=== PATIENT | female | born 1960 | race Caucasian/White ===

== ENCOUNTER 2016-09-04 08:55 | Inpatient (IN) | payer OTHER ==
--- NOTE | 2016-07-12 13:33 | NUR ---
JOINT CAMP: Patient attended joint camp at [facility], patient is coming in for hip replacement on 07/25/16. Patient states she has POA which is Tio Rodriguez [phone]. Patient is not the primary caregiver for anyone else and comes from home, there are stairs to enter the home. Amount is unknown as it is not on worksheet. Patient has sister & daughter who will be helping upon arrival home, Tio Rodriguez (Daughter) Chandrika Ayoub (Sister). Chandrika will be the one to transport day of discharge. Patient has never been connected with Home health or [facility] placement,patient has also never had outpatient physical therapy. Patient has bath bench,elevated toilet seat,beside commode and walker at home already.
--- NOTE | 2016-07-21 13:16 | PCM.ANEPRE ---
Anesthesia Pre-Op Review Reason for Review: +CODIE, SLEEP STUDY NOT UNTIL 09/04 Anesthesia Recommendations: Delay until Additional Data Obtain Additional Comments 55 y/o female scheduled for L Total Hip. Comorbidities include BMI 34.8, Stop Bang 07/27, 30 pack yr h/o smoking, migraines. Patient was referred to Jasmyne Barrera on 06/21/16 for insomnia and sleep issues. According to Jasmyne it takes the patient up to 60 minutes to fall asleep with OTC sleep aides, and even then she has difficulty staying asleep. The patient also snores and is a high risk for severe CODIE. A sleep study is scheduled on 09/04. Because of the patient's comorbidities and high risk for severe CODIE (as well as her current sleep issues ) it would be prudent to delay the surgery until after her sleep study. Please delay surgery until after sleep study. Jorge Mills MD Jul 21, 2016 13:16
[~2016-09-04] VITALS: Ht 167.6 cm; Wt 87.2 kg
[2016-09-04] VITALS (10 sets, daily range): BP systolic 114–149; BP diastolic 57–85; PULSE 47–75; RESP 10–20; O2SAT 93–98
[~2016-09-04 08:55] MED LIST: CeFAZolin 2 Gm/50 mL D5W IV Premix IV ONE; HYDR-4003 PO; IMI100 PO; KEN25CR EXT; Lactated Ringer's 1,000 ML IV ONE; NPR500T PO; Vancomycin Inj 1,000 MG in IV Premix 1 EACH IV ONE
--- NOTE | 2016-09-04 09:11 | PCM.HPANE ---
Patient Data Date of Service: Sep 04, 2016 Surgeon Admitting Provider: Attending Provider:Jorge Rodriguez DO Primary Care Physician:Miky Dos Santos MD Other Provider:Flori Conrad Anesthesia Reason for Visit Left Hip Vascular Necrosis Ht/WT & BMI Height (Feet): 5 Height (Inches): 6.00 Weight (Kilograms): 97.795 Body Mass Index 34.00 Allergies Coded Allergies: No Known Allergies (Verified Allergy, Unknown, 07/29/13) Past Anesthesia History Anesthesia History: Denies:: Abnormal Airway, Anesthesia Reactions, Difficult Intubation, Fam Anesthesia Reaction, Fam Malignant Hypertherm, Malignant Hyperthermia Diabetes History Hx Diabetes?: No MRSA MRSA: No Medications Blood Thinner: Aspirin Hypertension Medication: No Home Meds Incl Beta Harpal: No Reported Medications Diazepam 5 Mg Tablet5 Mg PO TID PRN For Anxiety Ref 0 09/04/16 Triamcinolone Acet (Triamcinolone Acetonide Cream)1 Applic/0.25 Gm Cr1 Applic EXT BID #60 GM Ref 0 08/29/16 Sumatriptan (Imitrex)100 Mg [id number] Mg PO Q2H PRN migraine MR x1/ NTE 200mg/24hrs 08/29/16 Naproxen 500 Mg Hlv470 Mg PO BID For Pain Ref 0 08/29/16 Hydrocodone-Acetaminophen 5-325 mg 1 Each Tablet1 Tablet PO Q6H PRN For Pain Ref 0 08/29/16 Discontinued Reported Medications Sumatriptan (Imitrex)100 Mg [id number] Mg PO PRN 07/21/16 Hydrocodone-Acetaminophen 5-325 mg 1 Each Tablet1 Tablet PO Q6H PRN For Pain Ref 0 07/21/16 Ubidecarenone/Vit E Acetate (Co Q-10 100 mg Softgel)1 Each Capsule1 Each PO DAILY 07/30/13 Multivitamin (Multi-Vitamin Daily)1 Each Tablet1 Each PO DAILY 07/30/13 Acetaminophen (Tylenol)325 Mg [id number] Mg PO PRN PRN For Pain 07/30/13 Naproxen Sodium (Aleve)220 Mg Kmopsyy558 Mg PO PRN PRN For Pain 07/30/13 History History of ENT Problems?: Yes HEENT History: Positive for:: Hearing Problem Denies:: Abnormal Airway Difficult Intubation Dysphagia Denture Type: None Teeth Condition: Within Normal Limits Hx of Heart Problems?: No Cardiovascular History: Denies:: AICD Atrial Fibrillation Chest Pain Heart Murmur Hypertension Irregular Heartbeat Pacemaker Valvular Heart Disease Hx of Respiratory Problem?: No Respiratory History: Positive for:: Use of C-PAP Machine (benjy home CPAP) Denies:: Asthma COPD Cough Hemoptysis Oxygen Administration Pneumonia Tuberculosis Hx Neurologic Problems?: Yes Neurological History: Positive for:: Headaches (rare) Denies:: CVA Dementia Hx of GI Problems?: No Hx of Problems?: No Female Hx: Denies:: Currently (tubal) Skin History: Denies:: History Skin Disorders? Hx Musculoskeletal Problems?: Yes Musculoskeletal History: Positive for:: Degenerative Joint Osteoarthritis Denies:: Fibromyalgia Joint Replacement Hx of Psycho/Social Problems?: No Psycho Social History: Denies:: Anxiety Hx Depression Hx Surgeries?: Yes (tubal, endometrial ablation, dx laparoscopy) Hx Any Other Health Problems?: Yes Other History: Denies:: Cancer Endocrine Disease Thyroid Disease History Blood Transfusions: Positive for:: Accept Blood Products? Blood Transfusions Denies:: Blood Transfuse Reaction Hx Diabetes: No Hx Alcohol Use: Yes (2 drinks per week for 20 years)Hx Substance Use: No Smoking Status: Former Smoker Light Tobacco Smoker Have You Smoked inLast 12 mo: No Stop/Bang Treated for Sleep Apnea?: Yes Do You Have a CPAP Machine?: Yes S-Snoring: Do You Snore Loudly: Yes T-Tired: feel tired, fatigued: Yes O-Obsered: Observed not breath: No P-Blood Pressure: treated: No B- Body Mass Index > 35 kg/m2: No A- Age over 50: Yes N- Neck Large Circumference: Yes G- Gender Male: Yes CODIE Total Score: 5 CODIE Category 2: Yes Risk Assessment Category Category 1A: Patient has history of documented sleep apnea, and HAS NOT received any narcotic, sedative or anesthesia administration during this stay. Category 1B: Patient has history of documented sleep apnea, and HAS received any narcotic , sedative or anesthesia administration during this stay Category 2: Patient has SUSPECTED Obstructive Sleep Apnea, and HAS received any narcotic , sedative or anesthesia administration during this stay. Category 3: Patient has SUSPECTED Obstructive Sleep Apnea and HAS NOT received narcotic, sedative or anesthesia administration during this stay. Category 4: Outpatient in Procedural Areas with known sleep apnea or who screen positive for High Risk via the STOP/BANG questionnaire. Exam Exam Vital Signs 151/74, HR 74, General Appearance: Alert HEENT/AIRWAY: MP 3, Mouth Opening (normal), Other (short TM ) Lungs: Clear to Auscultation Heart: Regular Rate/Rhythm Meds/Labs/Diagnostics Admission Meds Current Medications Lactated Ringer's (Lr) 1,000 ml @ 120 mls/hr Q8H20M ONCE IV Last administered on 09/04/16t 08:59; Start 09/04/16 at 05:00; Stop 09/04/16 at 13:19 Plan Impression Patient chart reviewed, patient interviewed and anesthestic plan with risks, benefits, and alternatives discussed, and informed consent obtained. NPO per Anesth. Guidelines: Yes ASA Physical Status: ASA2 Mod Systemic Disease Anesthetic Plan: GA, SAB Bene/Risks/Altern/Consents: Yes HP Complete Prior to Induction: Yes Aston Verduzco DO Sep 04, 2016 09:11
[2016-09-04] MEDS ORDERED: DIAZ5TAB3 PO (09:14)
[2016-09-04] MEDS ORDERED: Lactated Ringer's 1,000 ML IV ONE ×2 (09:59→13:22)
[2016-09-04] MEDS: fentaNYL-PF 50 mCg/mL 2 mL Inj IVPUSH PRN ×4 (10:08→14:42)
[2016-09-04] MEDS ORDERED: Bupivacaine Liposome 1.3% 20 mL Inj INFILTRATE ONE ×2 (11:00→13:15)
[2016-09-04] MEDS ORDERED: Lactated Ringer's 500 ML IV PRN (12:43)
[2016-09-04] MEDS ORDERED: Lactated Ringer's 1,000 ML IV SCH (12:43)
[2016-09-04] MEDS ORDERED: Ondansetron 2 mg/mL 2 mL Inj IVPUSH PRN ×2 (12:45→13:55)
[2016-09-04] MEDS ORDERED: Phenylephrine 10,000 mCg/mL Inj IVPUSH PRN (12:45)
[2016-09-04] MEDS ORDERED: MetoCLOpramide 5 mg/mL 2 mL Inj IVPUSH PRN (12:45)
[2016-09-04] MEDS ORDERED: HYDROmorphone 1 mg/mL Inj IVPUSH PRN (12:45)
[2016-09-04] MEDS ORDERED: EPHEDrine Sulfate 50 mg/mL Inj IVPUSH PRN (12:45)
[2016-09-04] MEDS ORDERED: 0.9% Sodium Chloride 10 mL Inj INFILTRATE ONE (13:15)
[2016-09-04] MEDS ORDERED: Bupivacaine-MPF 0.5% W/EPI 30 mL Inj INFILTRATE ONE (13:15)
--- NOTE | 2016-09-04 13:50 | NUR ---
Arrived to [facility] 1015 Pt arrived to [facility] Rm 1015; A&Ox3, no c/o pain at arrival; wedge between legs and pt sitting 30* upright; IV LR infusing, RA, VSS. Family at BS upon arrival. Will monitor with frequent rounds.
[2016-09-04] MEDS ORDERED: Polyethylene Glycol (PEG) 17 Gm Powder PO PRN (13:55)
[2016-09-04] MEDS ORDERED: Magnesium Hydroxide 10 mL Oral Concentration PO PRN (13:55)
--- NOTE | 2016-09-04 15:03 | DRSVH ---
PROCEDURE: X-RAY PELVIS W/LAT HIP (LT) ([id number]) INDICATIONS: post op TECHNIQUE: AP pelvis and lateral view of the left hip acquired. COMPARISON: [facility], , XR PELVIS W LATERAL HIP LT, 07/07/2016, 9:29. FINDINGS: Bones: Patient is status post left hip arthroplasty, with hardware components in expected positions. Moderate right hip joint degeneration. The visualized bony structures appear intact. Soft tissues: Overlying postoperative changes are noted. No suspicious soft tissue densities. IMPRESSION: Status post left hip arthroplasty in expected postoperative alignment. Moderate right hip joint degeneration. Dictated by: Odell Henry M.D. on 09/04/2016 at 15:00 Approved by: Odell Henry M.D. on 09/04/2016 at 15:01
[2016-09-04] MEDS ORDERED: Dexamethasone 4 mg/mL Inj ONE (15:33)
[2016-09-04] MEDS ORDERED: Phenylephrine/NS 100 mCg/mL 10 mL Syringe IVPUSH ONE (15:33)
[2016-09-04] MEDS ORDERED: Propofol 10,000 mCg/mL 20 mL Inj ONE (15:33)
[2016-09-04] MEDS ORDERED: EPHEDrine/NS 5 mg/mL 5 mL Syringe ONE (15:33)
[2016-09-04] MEDS ORDERED: Ondansetron 2 mg/mL 2 mL Inj ONE (15:33)
[2016-09-04] MEDS ORDERED: HYDROmorphone 0.5 mg/0.5 mL iSecure Syringe IVPUSH PRN (15:45)
[2016-09-04] MEDS: 0.9% Sodium Chloride 1,000 ML IV SCH (16:01)
[2016-09-04] MEDS: Sodium Chloride LOK Flush 10 mL Syringe IV SCH (16:30)
[2016-09-04] MEDS: oxyCODONE-Acetamin 5-325 mg Tablet PO PRN ×2 (16:36→20:29)
--- NOTE | 2016-09-04 18:54 | NUR ---
Pain Pt began having pain to hip area and requesting 1 PO Percocet for pain, stating "it's barking" meaning the numbness is wearing off states 6-7/10 pain to area; slightly anxious about having post-operative pain. Percocet given and pt ice pack replaced. Pt states pain better down to 4 and headache gone after coffee and eating; but pain is not gone. 30mg IV Ketoralac given for pain. Pt states pain is tolerable. Will continue to monitor with frequent rounds.
[2016-09-04] MEDS: CeFAZolin Inj 2 GM in IV Premix 1 EACH IV SCH (20:24)
[2016-09-04] MEDS: Senna-Docusate 8.6-50 mg Tablet PO SCH (20:25)
[2016-09-04] MEDS: hydrOXYzine Pamoate 25 mg Capsule PO PRN (20:25)
--- NOTE | 2016-09-04 21:41 | OP ---
[address] [address] OPERATIVE REPORT PATIENT: MAGY SETH : 1960 MR#: [id number] ADMIT: 09/04/2016 JOB ID: [id number] DATE OF SURGERY: 09/04/2016 PREOPERATIVE DIAGNOSIS(ES): Left hip avascular necrosis. POSTOPERATIVE DIAGNOSIS(ES): Left hip avascular necrosis. PROCEDURE: Left total hip arthroplasty. SURGEON: Jorge Rodriguez DO. SHELLFISH WEIGHER: Roxi Espinal PA-C. A cardiovascular surgical tech was required for the successful completion of this procedure. INDICATIONS: The patient is a 55-year-old female with left hip severe avascular necrosis, who has failed conservative measures and wished to proceed with a left total hip arthroplasty. We discussed the risks, benefits, and possible complications of surgery including, but not limited to injury to nerves and vessels, infection, bleeding, incomplete relief of symptoms, stiffness, need for additional procedures. The patient had good understanding, all questions were answered, and she wished to proceed. PROCEDURE IN DETAIL: The patient was brought to the operating room. She was given a preoperative antibiotic and 1 g TXA preoperatively. A surgical time-out was performed. She was given a spinal block as well as LMA general anesthetic. Placed comfortably into the lateral decubitus position. The left hip was sterilely prepped and draped. An incision was made centered over the greater trochanter in line with the femur. Dissection was carefully carried through subcutaneous tissue. Electrocautery was used for hemostasis. A split was then made in the iliotibial band in line with the femur and the Charnley retractor was then placed. A split was then made in the gluteus medius between the junction of the anterior one-third, posterior two-thirds, and Hohmann retractors were placed on either side of the femoral neck. An anterior sleeve of tissue was released off of the trochanter leaving a cuff of tissue for repair. This was taken to a point just distal to the vastus tubercle. A small triangular portion of capsule was removed and the hip was then dislocated. Her capsule was fairly thin and attenuated as were unfortunately much of her tissues. Her femoral neck cut was made about a fingerbreadth above the level of the lesser trochanter and the femoral head was removed. The femur was then prepared beginning with a box osteotome. This was then broached sequentially up to a size 5, which had excellent fit and fill, and a calcar planer was used to smooth the top of the femur. Next, the acetabulum was addressed with anterior and posterior acetabular retractors. The pulvinar, labrum and excess capsule were removed and the acetabulum was then reamed sequentially beginning with a 43, up to a size 51 for a 52 cup. The [employer] [place] three-hole, 52 cup was chosen, impacted into position. Care was taken to ensure the appropriate abduction and anteversion and further secured with a single superior dome screw. This had excellent fixation. We then trialed the hip and I liked the 36, +4 neutral trial and did sink the femoral implant a bit further and then calcar planed again in order to accommodate this lateralized liner. This allowed for excellent range of motion, equal leg length and great stability, and these implants were chosen and implanted beginning with the 36, +4, 52 liner, followed by the size 5 Tri-Lock standard stem and the +1.5 x 36 ceramic femoral head. The hip was then relocated, had excellent range of motion, great stability and shuck, and the wound was irrigated and then closed. Unfortunately, her capsule tissue was to attenuated to hold suture and could not be closed. I then closed the gluteus medius and vastus lateralis with #5 Ethibond and #1 Surgilon. The iliotibial band was repaired with #1 Ethibond and 0-Vicryl. The subcu was closed with 2-0 Vicryl, 2-0 V-Loc, and 3-0 V-Loc for the subcuticular closure. A mixture of Marcaine, Exparel and saline was added as an adjunct local anesthetic. Sterile dressings were applied. Patient tolerated the procedure well. BLOOD LOSS: 150 cc. POSTOPERATIVE PROTOCOL: Have the patient weightbear to tolerance. Use a walker for ambulation. Avoid active abduction for six weeks. Will plan to use Lovenox for DVT prophylaxis.
[2016-09-04] MEDS: diphenhydrAMINE 25 mg Capsule PO PRN (23:15)
[2016-09-05 00:26] VITALS: BP 120/61; PULSE 50; RESP 18; O2SAT 96
[2016-09-05] MEDS: Sodium Chloride LOK Flush 10 mL Syringe IV SCH ×4 (00:30→23:44)
[2016-09-05] MEDS: 0.9% Sodium Chloride 1,000 ML IV SCH ×3 (02:43→22:13)
[2016-09-05] MEDS: hydrOXYzine Pamoate 25 mg Capsule PO PRN ×3 (02:44→12:55)
[2016-09-05] MEDS: oxyCODONE-Acetamin 5-325 mg Tablet PO PRN ×2 (02:44→08:29)
[2016-09-05] MEDS: CeFAZolin Inj 2 GM in IV Premix 1 EACH IV SCH (04:16)
[2016-09-05 04:29] VITALS: BP 120/68; PULSE 68; RESP 18; O2SAT 97
--- NOTE | 2016-09-05 04:49 | NUR ---
pain pt c/o 5-6/10 pain at the surgical site. administered PO Percocet with Vistaril and IVP Toradol, which is effective. left hip surgical site CMS is intact. cap refill <3 seconds. dressing C/D/I. Barrera draining clear pall yellow urine. will continue to monitor.
[2016-09-05 06:47] LABS: BASOPHILS % (AUTO) 0.1 % (0-3); EOSINOPHILS % (AUTO) 0.5 % (0-5); MONOCYTES % (AUTO) 10.4 % (4-12); Mean Corpuscular Hemoglobin 32.4 pg (27.0-35.0); Mean Corpuscular Volume 95.5 fL (81-100); NEUTROPHILS % (AUTO) 72.1 % (40-74); Platelet Count 202 bil/L (150-400)
[2016-09-05] MEDS: Senna-Docusate 8.6-50 mg Tablet PO SCH ×2 (07:51→22:20)
--- NOTE | 2016-09-05 08:37 | PCM.PNORTH ---
Subjective Date of Service: Sep 05, 2016 Visit Information: Reason for Visit Left Hip Vascular Necrosis Surgery/Surgery Date L SONYA 09-04-16 Post-Op Day # 1 Date of Admission: Sep 04, 2016 at 15:32 Hospital Day # Subjective Patient states her pain is well controlled. She has not worked with PT yet but believes she will do great. No complaints at this time Postop General: No Complaints Pain Management: PO Objective Exam Objective Patient sitting up in bed Vital Signs and I/O Vital Sign - Last Date Time Temp Pulse Resp B/P Pulse Ox O2 Delivery O2 Flow Rate FiO2 09/05/16 04:29 36.8 68 18 120/68 97 Room Air Intake and Output 09/04/16 09/04/16 09/05/16 Cumulative From/Thru 15:00 23:00 07:00 07/21/16 09:47 - 09/05/16 06:19 Intake Total 2470 ml 1007 ml 800 ml 4277 ml Output Total 400 ml 600 ml 1550 ml 2550 ml Balance 2070 ml 407 ml -750 ml 1727 ml Intake Oral 840 ml 800 ml 1640 ml IV Total 2470 ml 167 ml 2637 ml Output Urine Total 250 ml 600 ml 1550 ml 2400 ml Estimated Blood Loss 150 ml 150 ml Lab & Micro Results Laboratory Tests Test 09/05/16 05:30 White Blood Count 8.8th/mm3 (3.8-10.1) Red Blood Count 3.80mil/mm3 (3.90-5.20) Hemoglobin 12.3g/dL (12.0-15.6) Hematocrit 36.3% (35.0-46.0) Mean Corpuscular Volume 95.5fL (81-100) Mean Corpuscular Hemoglobin 32.4pg (27.0-35.0) Mean Corpuscular Hemoglobin Concent 33.9% (32.0-37.0) Red Cell Distribution Width 14.1% (12.3-15.4) Platelet Count 202bil/L (150-400) Neutrophils (%) (Auto) 72.1% (40-74) Lymphocytes (%) (Auto) 16.8% (14-46) Monocytes (%) (Auto) 10.4% (4-12) Eosinophils (%) (Auto) 0.5% (0-5) Basophils (%) (Auto) 0.1% (0-3) Sodium Level 143mEq/L (134-144) Potassium Level 4.1mEq/L (3.5-5.2) Chloride Level 107mEq/L (97-108) Carbon Dioxide Level 22mmol/L (18-29) Blood Urea Nitrogen 9mg/dL (6-24) Creatinine 0.57mg/dL (0.57-1.00) Estimat Glomerular Filtration Rate 157mL/min (>59) Glucose Level 90mg/dL (60-99) Calcium Level 8.5mg/dL (8.5-10.1) Result Diagram: 09/05/1652909/05/1630 General Appearance: Alert, Oriented X3, Cooperative, No Acute Distress Extremities: Distal Pulses Palpable, No Compartment Syndrom Noted Postop Sensory Motor: Distal Motor Intact, Movement in Toes, Distal Sensation Intact, NVI Distally SURGICAL WOUND : Wound Location/Description Perioperative dressing clean dry and intact Incision General Appearance: No Direct Observation Activity: Ambulate with PT (WBAT c FWW) Catheters: Urethral 2 Way Barrera (D/C immediately) Assessment & Plan Impression Postoperative day #1 left total hip arthroplasty Problems: Plan Weightbearing: Weightbearing as tolerated with a front wheeled walker DVT prophylaxis: Lovenox 40mg SQ QD x 3 weeks followed by Aspirin 325 mg twice a day 3 weeks Physical therapy for transfers, progressive ambulation, strengthening Utilize POSTERIOR hip precautions. Wound care: Perioperative dressing will be changed to a island dressing tomorrow. Analgesia: Continue oral analgesia. Discharge plan: Discharge home in 1-2 days. Follow-up plan: In 2 weeks at [facility] with ULICES for wound check and at [address] Rodriguez with x-rays Estefani Lerner PA-C Sep 05, 2016 08:37
--- NOTE | 2016-09-05 11:12 | NUR ---
PIV / Pain Administered 30 mg IVP Toradol at 0750 hrs for pain. Noticed that IV site was puffy, but NaCl was infusing without problem and pt had no complaints. Rechecked pt later and saw that the IV catheter was bent [address] Rodriguez to inform him about lost IV access. Pt was also having more pain after her session with PT. Obtained new order for oxycodone. PIV removed and bandage placed on pt's left hand.
[2016-09-05 12:18] VITALS: BP 130/81; PULSE 83; RESP 18; O2SAT 99
--- NOTE | 2016-09-05 12:50 | NUR ---
Evaluation completed. Please go to "Notes" then click on "Assessments and Notes" (bottom left corner of screen). Then select appropriate discipline tab on top of screen.
--- NOTE | 2016-09-05 14:28 | PCM.ANEP1 ---
Post Anesthesia PACU Phase 1 Assessment Vital Signs Vital Signs Date Time Temp Pulse Resp B/P Pulse Ox O2 Delivery O2 Flow Rate FiO2 09/05/16 12:18 36.8 83 18 130/81 99 Room Air 09/05/16 10:51 CPAP/BIPAP Anesthetic Administered: GA, SAB Level of Alertness: Awake, talking Pain: No Pain Scale Score: 5 Nausea or Vomiting: No CV Function & Hydration Stable: Yes Airway Device: Oxygen Delivery: Room Air Lungs: Clear to Auscultation Dermatome Level: L1,2 (Groin) PACU Phase 2 Assessment Complications: No Follow up Care: No Patient Instructions Provided: Yes Aston Verduzco DO Sep 05, 2016 14:28
[2016-09-05 17:46] VITALS: BP 111/70; PULSE 69; RESP 18; O2SAT 97
[2016-09-05 21:00] VITALS: BP 110/74; PULSE 70; RESP 16; O2SAT 97
[2016-09-06] MEDS: 0.9% Sodium Chloride 1,000 ML IV SCH ×2 (05:13→15:54)
[2016-09-06 05:30] VITALS: BP 116/75; PULSE 69; RESP 16; O2SAT 95
--- NOTE | 2016-09-06 05:40 | NUR ---
Pain/Activity Pt c/o hip pain x 3 this shift;Pt given Oxycodone 10mg x 3 and Naprosyn 500mg x1. Pt able to ambulate using FWW and 1PA SBA to the bathroom x2 and voiding spontaneously. LT hip dressing C/D/I and no drainage noted at this time. Pt has had 3 ice packs applied to LT hip throughout the night and she states that she is feeling much better. "I am happy I got a few hrs of sleep." Pt would like to decrease Oxycodone to 5mg during the day if possible. Bed down in locked position and call light within reach. Care continues.
--- NOTE | 2016-09-06 06:57 | PCM.PNORTH ---
Subjective Date of Service: Sep 06, 2016 Visit Information: Reason for Visit Left Hip Vascular Necrosis Surgery/Surgery Date L SONYA 09-04-16 Post-Op Day # 2 Date of Admission: Sep 04, 2016 at 15:32 Hospital Day # Subjective Patient is ambulating in hallway with physical therapy. She complains of incisional pain. She feels that she is making slow but steady progress. She related 120 feet yesterday with therapy but feels that she may have overdone it. This morning she is focusing more on her mechanics then distance. She would like to work more on stairs and transfers out of bed. She does not feel she is ready to go home today. Postop General: No Complaints, No Shortness of Breath, No Chest Pain Pain Management: PO Objective Exam Objective The patient is examined while standing in her walker at bedside Vital Signs and I/O Vital Sign - Last Date Time Temp Pulse Resp B/P Pulse Ox O2 Delivery O2 Flow Rate FiO2 09/06/16 05:30 36.8 69 16 116/75 95 Room Air Intake and Output 09/05/16 09/05/16 09/06/16 Cumulative From/Thru 15:00 23:00 07:00 07/21/16 09:47 - 09/06/16 06:50 Intake Total 1470 ml 1200 ml 600 ml 7547 ml Output Total 400 ml 2950 ml Balance 1470 ml 800 ml 600 ml 4597 ml Intake Oral 1200 ml 600 ml 3440 ml IV Total 1470 ml 4107 ml Output Urine Total 400 ml 2800 ml Estimated Blood Loss 150 ml # Voids 2 3 5 # Bowel Movements 0 0 Result Diagram: 09/05/16 0530 09/05/16 0530 General Appearance: Alert, Oriented X3, Cooperative, No Acute Distress Extremities: Distal Pulses Palpable, No Compartment Syndrom Noted, Thigh & Calf Soft/Nontender Postop Sensory Motor: Distal Motor Intact, Distal Sensation Intact, NVI Distally SURGICAL WOUND : Wound Location/Description Left hip: Surgical dressing is removed. There is swelling of the thigh and mild ecchymosis. There is no acute drainage. The wound is cleansed with hydrogen peroxide. A knew dressing is applied with Silverlon and Island dressing. Incision General Appearance: Steri Strips, Well Approximated Dressing & Drainage Status: Changed Activity: Ambulate with PT (WBAT c FWW) Catheters: None Assessment & Plan Impression POD #2 status post left total hip arthroplasty Problems: Plan Weightbearing: Weightbearing as tolerated with walker DVT prophylaxis: Lovenox 40 mg subcutaneous 3 weeks followed by aspirin 325 mg twice a day 3 weeks Physical therapy for transfers, progressive ambulation, therapeutic exercise. Patient ambulated well physical therapy yesterday 120 feet Ezioroskiko is DC'd due to increased risk of GI bleed while taking Lovenox Nursing to apply thigh high compression stockings today Wound care: Dressing change by PA today Discharge plan: Discharge home tomorrow . Follow-up plan: In 2 weeks at [facility] with PA for wound check and at [address] Rodriguez with x-rays Pain Management: Oxycodone, Toradol, Vistaril, fentanyl VTE Prophylaxis: Sub-Q Enoxaparin, SCDs Resuscitation Status: CPR: Attempt Resuscitation [place] Timmons PA-C Sep 06, 2016 06:57
[2016-09-06 07:13] LABS: BASOPHILS % (AUTO) 0.3 % (0-3); MONOCYTES % (AUTO) 9.9 % (4-12); Mean Corpuscular Hemoglobin 32.3 pg (27.0-35.0); Mean Corpuscular Volume 97.9 fL (81-100); NEUTROPHILS % (AUTO) 61.1 % (40-74); Platelet Count 202 bil/L (150-400)
[2016-09-06] MEDS: Senna-Docusate 8.6-50 mg Tablet PO SCH ×2 (07:49→21:33)
[2016-09-06 07:57] VITALS: BP 114/66; PULSE 87; RESP 16; O2SAT 99
[2016-09-06] MEDS: Sodium Chloride LOK Flush 10 mL Syringe IV SCH ×2 (08:30→16:30)
--- NOTE | 2016-09-06 11:59 | NUR ---
Evaluation completed. Please go to "Notes" then click on "Assessments and Notes" (bottom left corner of screen). Then select appropriate discipline tab on top of screen.
[2016-09-06 12:26] VITALS: BP 124/72; PULSE 72; RESP 14; O2SAT 97
--- NOTE | 2016-09-06 16:28 | NUR ---
Social Work- Screening/Readiness for Discharge/Multidisciplinary Rounds Data: EMR reviewed. Pt is a 55 year old female admitted 09/04/16 for left hip vascular necrosis per H&P. Per rounds, pt is likely to discharge tomorrow. no SW needs identified. Pt's insurance is [employer]. Pt's NOK is sister Chandrika Ayoub [phone]. SW met with pt at bedside regarding discharge plan. Pt resides in [place] and is independent at baseline. Pt has been cleared for home by PT and pt expressed no concerns related to her discharge. Pt's sister and daughter are going to be available after hospitalization. Pt already has the name of her outpt PT picked out and denied concerns related to contacting this PT and scheduling services. Pt requested DPOA paperwork be provided, SW will provide this. No discharge needs identified at this time. Pt to discharge home with family to transport via POV. SW will continue to follow. Assessment: Pt who is independent at baseline. Plan: Pt to discharge home with family to transport via POV. No discharge needs identified at this time. SW will continue to follow. Annmarie Cook MSW
[2016-09-06 16:31] VITALS: BP 121/72; PULSE 72; RESP 16; O2SAT 96
--- NOTE | 2016-09-06 18:50 | NUR ---
Pain/Roxicodone Pt c/o 6-7/10 pain today; 10mg PO Roxicodone given q3hrs. Pt states pain is still 5/10, but unable to get pain down to 4 today. Up with pt; up with SBA to bathroom and bs chair for meals today, visiting with family and friends at the bs with naps between visitors and care. Will continue to monitor with frequent rounds.
[2016-09-06 19:51] VITALS: BP 109/70; PULSE 78; RESP 18; O2SAT 94
[2016-09-06] MEDS: diphenhydrAMINE 25 mg Capsule PO PRN (21:33)
[2016-09-07] MEDS: hydrOXYzine Pamoate 25 mg Capsule PO PRN (00:22)
[2016-09-07] MEDS: Sodium Chloride LOK Flush 10 mL Syringe IV SCH ×2 (00:22→07:55)
[2016-09-07] MEDS: 0.9% Sodium Chloride 1,000 ML IV SCH ×2 (01:54→07:55)
[2016-09-07 04:45] VITALS: BP 107/61; PULSE 67; RESP 17; O2SAT 96
--- NOTE | 2016-09-07 06:27 | NUR ---
NOC PT had a good night. Pain is well managed with 10mg oxycodone, vistaril and diazepam. L thigh is a little swollen, but ice has been on most of the shift. Dressing to L hip is c/d/i. VS WNL. PT is a SBA with FWW to the bathroom. Strength to LLE is 5/5. Wedge in place at all times while in bed. PT uses her own cpap at night. No BM yet, but passing flatus. +BS t/o.
[2016-09-07] MEDS: Senna-Docusate 8.6-50 mg Tablet PO SCH (07:53)
--- NOTE | 2016-09-07 09:25 | PCM.PNORTH ---
Subjective Date of Service: Sep 07, 2016 Visit Information: Reason for Visit Left Hip Vascular Necrosis Surgery/Surgery Date L SONYA 09-04-16 Post-Op Day # 3 Date of Admission: Sep 04, 2016 at 15:32 Hospital Day # Subjective Pain is well-controlled. Patient is progressing well with physical therapy. Mother is some redness and swelling of the proximal thigh. Postop General: No Complaints, No Shortness of Breath, No Chest Pain Pain Management: PO Objective Exam Objective Patient is seen in bed Vital Signs and I/O Vital Sign - Last Date Time Temp Pulse Resp B/P Pulse Ox O2 Delivery O2 Flow Rate FiO2 09/07/16 04:45 36.8 67 17 107/61 96 Room Air Intake and Output 09/06/16 09/06/16 09/07/16 Cumulative From/Thru 15:00 23:00 07:00 07/21/16 09:47 - 09/07/16 04:45 Intake Total 1220 ml 300 ml 9067 ml Output Total 2950 ml Balance 1220 ml 300 ml 6117 ml Intake Oral 1220 ml 300 ml 4960 ml IV Total 4107 ml Output Urine Total 2800 ml Estimated Blood Loss 150 ml # Voids 4 3 12 # Bowel Movements 0 0 Result Diagram: 09/06/16 0640 09/06/16 0640 General Appearance: Alert, Oriented X3, Cooperative, No Acute Distress Extremities: Distal Pulses Palpable, No Compartment Syndrom Noted, Tenderness/ Swelling Noted Postop Sensory Motor: Distal Motor Intact, NVI Distally SURGICAL WOUND : Wound Location/Description Left hip: Dressing is removed. There is erythema outlining the adhesive from the current bandage as well as a previous bandage. There is warmth and swelling of the anterior thigh. There is no drainage at the wound. The wound is well approximated and Steri-Strips are intact. There is mild ecchymosis posteriorly. Dressing is changed to Silverlon and Tegaderm. The redness appears to be irritation from adhesive therefore dressing was changed to Tegaderm. Activity: Ambulate with PT (WBAT c FWW) Catheters: None Assessment & Plan Impression POD #3 status post left total hip arthroplasty Problems: Plan Weightbearing: Weightbearing as tolerated with walker DVT prophylaxis: Lovenox 40 mg subcutaneous 3 weeks followed by aspirin 325 mg twice a day 3 weeks Physical therapy for transfers, progressive ambulation, therapeutic exercise. Patient is progressing well with PT Nursing to apply thigh high compression stockings today Wound care: Dressing change by ULICES today. There is some redness, swelling of the anterior thigh. It is in the outline of the previous adhesive dressing but to be on the safe side, the dressing was changed to a Tegaderm and Silverlon. Patient will be discharged on antibiotics today Discharge plan: Discharge home today. Discharge instructions are reviewed. Follow-up plan: Wound check with orthopedic nurse in 1 week, and in 2 weeks at [facility] with PA for wound check and at [address] Rodriguez with x- rays Pain Management: Oxycodone, Toradol, Vistaril VTE Prophylaxis: Sub-Q Enoxaparin, SCDs Resuscitation Status: CPR: Attempt Resuscitation [place] Tim[place] PA-C Sep 07, 2016 09:24
--- NOTE | 2016-09-07 09:26 | PCM.DIORTH ---
Ortho Discharge Instruction Date of Service: Sep 07, 2016 Dates of Hospitalization Date of Hospital Admission Sep 04, 2016 at 15:32 Providers Admitting Physician: Jorge Rodriguez DO Primary Care Physician: Miky Dos Santos MD Attending Physician: Jorge Rodriguez DO Diet Discharge Diet: No restrictions Activity Discharge Activity-General: Be up and about, Balance rest and activity, Elevate & ice extremity, Ice incision 3-5 time/day for 20min Left Lower Extremity: Weight Bearing as tolerated Discharge Assist Device: Front Wheeled Walker Dressing and Incisional Care Discharge Dressing Care: Keep dressing clean, dry & intact Discharge Hygiene: May shower, DO NOT soak incision under water, NO bathtub, hot tub or whirlpool Additional Instructions Discharge Instructions Weightbearing: Weightbearing as tolerated with walker DVT prophylaxis: Lovenox 40 mg subcutaneous 3 weeks followed by aspirin 325 mg twice a day 3 weeks Wear compression stockings for 4 weeks on the surgical leg and for 2 weeks on the right leg Wound care: Leave dressing in place until seen next week for nursing wound check Take antibiotics for the next week. Hip precaution positions to prevent dislocation: No flexing forward past 90, no crossing the legs at the knee, no active abduction for 6 weeks after surgery Increase walking a little more each day Follow Up Plan Follow Up Plan Follow-up plan: next week with nurse at Orthopedic office at [place] In 2 weeks at [facility] with ULICES for wound check and at [address] Rodriguez with x-rays Call your provider for: Fever, Chills, Shortness of breath, Vomitting, Drainage at incision, Wound redness (that is spreading), Increasing pain (for no reason) Roxi Espinal PA-C Sep 07, 2016 09:26
[2016-09-07] MEDS ORDERED: HYDR-3797 PO (09:42)
[2016-09-07] MEDS ORDERED: OXYC1TAB24 PO (09:42)
[2016-09-07] MEDS ORDERED: CEPH-512 PO (09:42)
[2016-09-07] MEDS ORDERED: POLY17PO6 PO (09:42)
[2016-09-07] MEDS ORDERED: ENOX40DI8 SUBQ (09:42)
--- NOTE | 2016-09-07 09:48 | PCM.DC.ORT ---
Discharge Summary Date of Service: Sep 07, 2016 Date of Hospital Admission: Sep 04, 2016 at 15:32 Date of Surgery: Sep 04, 2016 Date of Discharge: Sep 07, 2016 Reason for Hospitalization: Left hip arthritis Procedures Performed: Left total hip arthroplasty Hospital Course: The patient was admitted to the hospital on 09/04/2016 and underwent the above procedure. Antibiotic prophylaxis consisting of Ancef and vancomycin. The surgeon was Dr. Rodriguez. Patient tolerated the procedure well and was transferred to recovery room in stable condition. Patient had physical therapy to work on ambulation and transfers. Weightbearing as tolerated with walker. Pain was managed with Dilaudid, Percocet, Vistaril, Toradol. DVT prophylaxis: Lovenox 40 mg SQ daily, SCDs, THOMAS hose. Patient progressed well with physical therapy and on POD-3 was discharged home. There was some swelling and redness in the anterior thigh on postop day 3. Dressing was changed to a Tegaderm dressing and this appeared to be a irritation from previous adhesive dressings. Patient was also started on antibiotic of Keflex and she was discharged with Keflex for 10 days. Patient will have a nursing wound check next week. Follow- up: at [facility] 2 weeks postop for wound check and at [address] Rodriguez with x-ray Diagnosis at Time of Discharge Status post left total hip arthroplasty Problems: Disposition: Discharge home in stable condition Additional Information Follow Up Plan Follow-up plan: next week with nurse at Orthopedic office at [place] In 2 weeks at [facility] with PA for wound check and at [address] Rodriguez with x-rays Discharge Instructions: Discharge Activity-General: Be up and about, Balance rest and activity, Elevate & ice extremity, Ice incision 3-5 time/day for 20min Left Lower Extremity: Weight Bearing as tolerated Discharge Assist Device: Front Wheeled Walker Discharge Dressing Care: Keep dressing clean, dry & intact Discharge Hygiene: May shower, DO NOT soak incision under water, NO bathtub, hot tub or whirlpool Discharge Instructions Weightbearing: Weightbearing as tolerated with walker DVT prophylaxis: Lovenox 40 mg subcutaneous 3 weeks followed by aspirin 325 mg twice a day 3 weeks Wear compression stockings for 4 weeks on the surgical leg and for 2 weeks on the right leg Wound care: Leave dressing in place until seen next week for nursing wound check Take antibiotics for the next week. Hip precaution positions to prevent dislocation: No flexing forward past 90, no crossing the legs at the knee, no active abduction for 6 weeks after surgery Increase walking a little more each day Cephalexin (Keflex) 500 Mg Capsule 500 MG PO QID Diazepam (Diazepam) 5 Mg Tablet 5 MG PO TID PRN PRN For Anxiety Enoxaparin Sodium (Enoxaparin Sodium) 40 Mg/0.4 Ml Syringe 40 MG SUBQ Q24 Hydroxyzine Pamoate (HydrOXYzine Pamoate) 25 Mg Capsule 25 MG PO Q6H PRN PRN For Spasm and/or Restlessness Polyethylene Glycol 3350 (Miralax) 17 Gm Powd.pack 17 GM PO DAILY PRN PRN For Constipation Sumatriptan (Imitrex) 100 Mg Tablet 100 MG PO Q2H PRN PRN migraine MR x1/ NTE 200mg/24hrs Triamcinolone Acet (Triamcinolone Acetonide Cream) 1 Applic/0.25 Gm Cr 1 APPLIC EXT BID oxyCODONE-Acetaminophen 5-325 mg (oxyCODONE-Acetaminophen 5-325 mg) 1 Each Tablet 1-2 TAB PO Q4H PRN PRN For Pain Max 8 per day Roxi Espinal PA-C Sep 07, 2016 09:48
--- NOTE | 2016-09-07 11:42 | NUR ---
Social Work: Discharge/Multidisciplinary Rounds D: EMR reviewed. Pt is on day 2 of hospitalization. Per rounds, pt is medically stable to discharge today, no SW needs identified. Pt has been cleared for home by PT and pt expressed no concerns related to her discharge. Pt's sister and daughter are going to be available after hospitalization. SWmet with pt and sister in room and provided DPOA/advanced directive ppw per pt's request. Pt's sister confirmed she will provide transport home via POV today. No discharge needs identified at this time. SW will continue to follow. A: Pt who is independent at baseline. P: Pt to discharge home with sister to transport today via POV. No discharge needs identified at this time. SW will continue to follow. NETTA Salcedo
--- NOTE | 2016-09-07 12:25 | NUR ---
Discharge Pt discharged at 1208 in w/c to private vehicle with sister. Pain increasing and pt medicated prior to discharged. No IV access in place. Pt has discharge papers, care notes and rx's. Pt understands hip precautions and s/s of when to return to hospital or call MD. Medial to incision was red and hot this AM, PA is aware and antibiotic rx given to pt. Dressing is CDI. Lovenox teaching done this AM and teaching kit was given. Pt A&O x 3, RUSH, VSS. Pt has all belongings and all questions answered.
== END 2016-09-07 12:02 | disposition home or self-care (01) | DRG 470 ==
LOC: SAS 08:55 → OSC 15:32
PROVIDERS: ADMIT Orthopaedic Surgery; ATTEND Orthopaedic Surgery
PROC: 0SRB04A Replacement of Left Hip Joint with Ceramic on Polyethylene Synthetic Substitute, Uncemented, Open Approach (ICD-10-PCS; principal; 2016-09-04 11:15)
DX: M87.052 Idiopathic aseptic necrosis of left femur (principal); G47.33 Obstructive sleep apnea (adult) (pediatric); Z79.82 Long term (current) use of aspirin; Z87.891 Personal history of nicotine dependence